=== PATIENT | male | born 1970 | race Hispanic/Latino ===

== ENCOUNTER 2019-08-27 16:07 | Emergency (ER) | payer BC, OTHER ==
[~2019-08-27] VITALS: Ht 170.2 cm; Wt 83.5 kg
[~2019-08-27 16:07] MED LIST: LEVAQUIN500 MG PO; NORCO 7.5-3251 EACH PO
[2019-08-27] MEDS ORDERED: DONNATAL/LIDOCAINE/MAALOX 30 ML SUSP PO SCH ×2 (16:45→21:00)
[2019-08-27] MEDS ORDERED: DONNATAL/LIDOCAINE/MAALOX 30 ML SUSP PO ONE (16:45)
[2019-08-27] MEDS ORDERED: BELLADONNA ALK/PHENOBARBITAL 5 ML UDC ONE (16:52)
[2019-08-27] MEDS ORDERED: LIDOCAINE VISC 2% SOLN 15 ML UDC ONE (16:52)
[2019-08-27] MEDS ORDERED: MAGNESIUM/ALUMINUM/SIMETHICONE 30 ML UDC ONE (16:53)
--- NOTE | 2019-08-27 17:21 | NUR ---
client states meds helped him feel better.
[2019-08-27] MEDS ORDERED: SODIUM CHLORIDE 0.9% 1000ML 1,000 ML IV STA (17:58)
[2019-08-27] MEDS ORDERED: PANTOPRAZOLE 40 MG 10ML VIAL IV STA (17:58)
[2019-08-27 18:05] LABS: BASOPHILS # (AUTO) 0.1 (0.0-0.1); BASOPHILS % 0.8 % (0.0-1.0); EOSINOPHILS # (AUTO) 0.1 (0.0-0.4); EOSINOPHILS % 0.6 % (0.0-6.0); HEMATOCRIT 50.6 % (38.2-49.6); HEMOGLOBIN 18.2 g/dL (14.0-18.0); LYMPHOCYTES # (AUTO) 1.9 (1.0-3.2); LYMPHOCYTES % 23.9 % (18.0-39.1); MEAN CORPUSCULAR HEMOGLOBIN 32.2 pg (28-32); MEAN CORPUSCULAR VOLUME 89.6 fL (81-99); MONOCYTES # (AUTO) 0.8 (0.2-0.8); MONOCYTES % 10.3 % (4.4-11.3); NEUTROPHILS # (AUTO) 5.1 (2.1-6.9); PLATELET COUNT 160 x10e3/uL (140-360); RED BLOOD COUNT 5.65 x10e6/uL (4.3-5.7); RED CELL DISTRIBUTION WIDTH 12.6 % (11.7-14.4)
[2019-08-27 18:16] LABS: ANION GAP 13.5 mmol/L (8-16); BLOOD UREA NITROGEN 19 mg/dL (7-26); BUN/CREATININE RATIO 17 (6-25); CALCIUM 10.2 mg/dL (8.4-10.2); CARBON DIOXIDE 23 mmol/L (22-29); CHLORIDE 102 mmol/L (98-107); CHOL/HDL RATIO 7.1 (3.9-4.7); CHOLESTEROL 305 MD/DL (0-199); CREATININE, SERUM 1.13 mg/dL (0.72-1.25); EST GLOMERULAR FILTRATION RATE > 60 ML/MIN (60-); GLUCOSE 104 mg/dL (74-118); HDL CHOLESTEROL 43 MG/DL (40-60); LIPASE 37 U/L (8-78); POTASSIUM 3.5 mmol/L (3.5-5.1); SODIUM 135 mmol/L (136-145); TRIGLYCERIDES 415 MG/DL (0-149)
--- NOTE | 2019-08-27 19:54 | Diagnostic Imaging Report ---
EXAM: CHEST 2 VIEWS DATE: 08/27/2019 6:31 PM INDICATION: ^reflux xoncerning for midiastenal ^[id number] ^190 COMPARISON: None FINDINGS: Lines and tubes: None Heart size normal. No focal pulmonary opacity, pleural effusion or pneumothorax. Upper abdomen unremarkable. No acute bony abnormality. IMPRESSION: No evidence for acute disease. Signed by: Dr. Kevin Linares M.D. on 08/27/2019 7:51 PM
[2019-08-27 20:24] VITALS: BP 143/97
[2019-08-29] MEDS ORDERED: MAALOX ADVANCE1 EACH PO (08:48)
[2019-08-29] MEDS ORDERED: AMOXICILLIN250 MG PO (08:48)
[2019-08-29] MEDS ORDERED: PANTOPRAZOLE SO40 MG PO (08:48)
== END 2019-08-27 20:55 | disposition home or self-care (01) ==
LOC: ER 16:07
DX: R10.13 Epigastric pain (principal); K29.00 Acute gastritis without bleeding
CPT/HCPCS: 36415; 71046; 80048; 80061; 83518; 83690; 85025; 87070; 99284; J7030

== ENCOUNTER → 2019-08-30 | Day surgery (SDC) | payer OTHER ==
[~2019-08-30] MED LIST changes: +AMOXICILLIN250 MG PO; +FENTANYL CITRATE/PF 100MCG/2 ML INJ ONE; +LIDOCAINE HCL 2% LOCAL INJ 5 ML SDV VIAL INJ ONE; +MAALOX ADVANCE1 EACH PO; +MIDAZOLAM HCL 2 MG/2 ML VIAL ONE; +PANTOPRAZOLE 40 MG 10ML VIAL ONE; +PANTOPRAZOLE SO40 MG PO; +PROPOFOL IV EMULSION 10 MG/ML 50 ML VIAL ONE
--- OUTSIDE RECORDS SUMMARY | 2019-08-30 07:10 | XMS REPORT ---
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 Allergies, Adverse Reactions, Alerts This patient has no known allergies or adverse reactions. Medications This patient has no known medications. Encounters Start Date/Time End Date/Time Encounter Type Admission Type Attending [facility] Facility Care Department Encounter ID 2018-03-16 00:00:00 2018-03-16 00:00:00 Outpatient [facility] [id number] 2018-02-21 00:00:00 2018-02-21 00:00:00 Outpatient [facility] [id number] 2018-01-31 00:00:00 2018-01-31 00:00:00 Outpatient [facility] [id number] 2018-01-30 09:12:22 2018-01-30 09:12:22 Outpatient [facility] [id number] 2018-01-30 09:05:11 2018-01-30 09:05:11 Outpatient [facility] [id number] 2018-01-23 00:00:00 2018-01-23 00:00:00 Outpatient [facility] [id number] 2018-01-17 00:00:00 2018-01-17 00:00:00 Outpatient [facility] [id number] 2017-12-08 11:15:10 2017-12-08 11:15:10 Outpatient [facility] [id number] 2017-12-01 09:58:20 2017-12-01 09:58:20 Outpatient [facility] [id number] 2017-12-01 08:19:25 2017-12-01 08:19:25 Outpatient [facility] [id number] 2017-12-01 00:00:00 2017-12-01 00:00:00 Outpatient [facility] [id number] 2017-10-20 00:00:00 2017-10-20 00:00:00 Outpatient [facility] [id number] 2017-10-11 06:58:51 2017-10-11 06:58:51 Outpatient [facility] [id number] 2017-09-28 00:00:00 2017-09-28 00:00:00 Outpatient [facility] [id number] 2017-09-08 00:00:00 2017-09-08 00:00:00 Outpatient [facility] [id number] 2017-08-15 00:00:00 2017-08-15 00:00:00 Outpatient [facility] [id number] 2017-07-24 15:35:07 2017-07-24 15:35:07 Outpatient [facility] [id number] Results Test Description Test Time Test Comments Text Results Atomic Results Result Comments CHEST 2 VIEWS 2019-08-27 19:50:00 [place] [id number] Patient Name: CINDY MAST MR #: [id number] : 1970 Age/Sex: 49/M Req #: [id number] Adm Physician: Ordered by: 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 No focal pulmonary opacity, pleural effusion or pneumothorax. Upper abdomen unremarkable. No acute bony abnormality. IMPRESSION: No evidence for acute disease. Signed by: Dr. Keon Larson M.D. on 08/27/2019 7:51 PM Dictated By: KEON LARSON MD 50 Transcribed By: ANGLE on 08/27/191950 COPY TO: NOEMÍ OLMOS NP
[2019-08-30 09:15] VITALS: BP 138/88
--- NOTE | 2019-08-30 09:22 | Operative Report ---
DATE OF PROCEDURE: 08/30/2019 SURGEON: Charlie Lua MD PROCEDURES: EGD with esophageal brushings and biopsies and esophageal dilatation. INDICATIONS FOR EGD: Epigastric pain, odynophagia, dysphagia. MEDICATIONS: The patient was done under MAC, please see anesthesiologist's note. PROCEDURE IN DETAIL: With the patient in left lateral decubitus position, a flexible fiberoptic Olympus gastroscope was introduced into the esophagus under direct visualization without any difficulty. Multiple erosions were noted in the esophagus without active bleeding or stigmata of recent hemorrhage and brushings were obtained. There was a mild stricture noted at the GE junction that was dilated to size 50-Scottish Rodriguez. The scope was then advanced with ease into the stomach. Mucosa overlying the antrum and the body revealed some patchy erythema and [id number] edema, and biopsies were obtained and sent to stain for H. pylori. Pylorus was of normal contour and shape and was intubated with ease and the scope was advanced all the way to the second portion of the duodenum. Biopsies were obtained from the proximal second portion as well as the duodenal bulb. In the bulb, there were some patchy areas of intense erythema. The scope was then withdrawn back into the stomach and retroflexed. Mucosa overlying the fundus and the cardia appeared to be within normal limits. The scope was then straightened out. It was subsequently withdrawn. The patient tolerated the procedure well. IMPRESSION: 1. Erosive esophagitis, brushed. 2. Mild stricture of Gastroesophageal junction, dilated to size 50-Scottish Rodriguez. 3. Gastritis, biopsied, biopsies sent to stain for Helicobacter pylori. 4. Bulbar duodenitis. 5. Rule out sprue. PLAN: Follow up histology. Increase Protonix to 40 mg one p.o. before meals b.i.d. Charlie Lua MD [facility] [place] /[id number] cc: Kunal Calvillo DO
== END | disposition home or self-care (01) ==
LOC: OR 06:57
PROVIDERS: ATTEND Internal Medicine Gastroenterology
DX: K22.2 Esophageal obstruction (principal); K29.80 Duodenitis without bleeding; K29.50 Unspecified chronic gastritis without bleeding; K21.9 Gastro-esophageal reflux disease without esophagitis; F41.9 Anxiety disorder, unspecified; F17.200 Nicotine dependence, unspecified, uncomplicated; K22.10 Ulcer of esophagus without bleeding; Z01.810 Encounter for preprocedural cardiovascular examination
CPT/HCPCS: 43235; 43239; 43450; 93005; J2001; J2250; J3010

== ENCOUNTER 2020-04-09 17:00 | Outpatient (RCR) | payer OTHER ==
[~2020-04-09 17:00] MED LIST changes: -FENTANYL CITRATE/PF 100MCG/2 ML INJ ONE; -LIDOCAINE HCL 2% LOCAL INJ 5 ML SDV VIAL INJ ONE; -MIDAZOLAM HCL 2 MG/2 ML VIAL ONE; -PANTOPRAZOLE 40 MG 10ML VIAL ONE; -PROPOFOL IV EMULSION 10 MG/ML 50 ML VIAL ONE
== END 2020-04-11 ==
LOC: PT 17:00
PROVIDERS: ATTEND Specialist
DX: M70.62 Trochanteric bursitis, left hip (principal); M62.81 Muscle weakness (generalized); M25.552 Pain in left hip
CPT/HCPCS: 36415

== ENCOUNTER 2020-04-22 17:00 | Outpatient (RCR) | payer OTHER | END 2020-05-11 | LOC: PT 17:00 | PROVIDERS: ATTEND Specialist | DX: M70.62 Trochanteric bursitis, left hip (principal); M62.81 Muscle weakness (generalized); M25.552 Pain in left hip ==

== ENCOUNTER 2022-02-28 17:28 | Emergency (ER) | payer OTHER ==
[~2022-02-28] VITALS: Ht 170.2 cm; Wt 83.5 kg
[2022-02-28 18:24] LABS: BASOPHILS # (AUTO) 0.1 (0.0-0.1); BASOPHILS % 0.8 % (0.0-1.0); EOSINOPHILS # (AUTO) 0.4 (0.0-0.4); EOSINOPHILS % 5.3 % (0.0-6.0); HEMATOCRIT 49.8 % (38.2-49.6); HEMOGLOBIN 17.5 g/dL (14.0-18.0); LYMPHOCYTES # (AUTO) 2.7 (1.0-3.2); LYMPHOCYTES % 35.9 % (18.0-39.1); MEAN CORPUSCULAR HEMOGLOBIN 32.1 pg (28-32); MEAN CORPUSCULAR HGB CONC 35.1 g/dL (31-35); MEAN CORPUSCULAR VOLUME 91.2 fL (81-99); MONOCYTES # (AUTO) 0.7 (0.2-0.8); MONOCYTES % 9.6 % (4.4-11.3); NEUTROPHILS # (AUTO) 3.6 (2.1-6.9); NEUTROPHILS % 47.9 % (38.7-80.0); PLATELET COUNT 185 x10e3/uL (140-360); RED BLOOD COUNT 5.46 x10e6/uL (4.3-5.7)
[2022-02-28] MEDS ORDERED: MECLIZINE HCL 12.5 MG TAB PO ONE (18:30)
[2022-02-28 18:42] LABS: ALBUMIN 4.3 g/dL (3.5-5.0); ALBUMIN/GLOBULIN RATIO 1.2 (0.8-2.0); CALCIUM 9.7 mg/dL (8.4-10.2); CREATININE, SERUM 1.22 mg/dL (0.72-1.25)
[2022-02-28 19:00] LABS: CLARITY,URINE CLEAR (CLEAR); COLOR,URINE YELLOW (YELLOW); KETONES,URINE NEGATIVE (NEGATIVE); LEUKOCYTE ESTERASE ,URINE NEGATIVE (NEGATIVE); NITRITE,URINE NEGATIVE (NEGATIVE); PROTEIN,URINE DIPSTICK NEGATIVE (NEGATIVE); URINE UROBILINOGEN 0.2 mg/dL (0.2 - 1)
[2022-02-28 19:11] LABS: AMORPHOUS SEDIMENT,URINE MODERATE (FEW); BACTERIA,URINE FEW /HPF
[2022-02-28] MEDS ORDERED: MECLIZINE HCL12.5 MG PO (19:29)
== END 2022-02-28 19:55 | disposition home or self-care (01) ==
LOC: ER 17:34
DX: R42 Dizziness and giddiness (principal); K21.9 Gastro-esophageal reflux disease without esophagitis
CPT/HCPCS: 36415; 70450; 80053; 81001; 84484; 85025; 93005; 99284; J8597